=== PATIENT | male | born 1965 ===

== ENCOUNTER 2017-01-09 20:08 | Emergency (ER) | payer SELFPAY ==
[2017-01-09 20:09] VITALS: BMI 17.4
[2017-01-09 20:26] VITALS: BP 105/69; PULSE 78; RESP 18; TEMP 98; O2SAT 99
--- NOTE | 2017-01-09 22:15 | C.PDOC ---
History Of Present Illness 51 y/o male c/o feeling an itchy ball in his rectum x 3 days. pt has hard stool and strains with bm. denies rectal bleeding, abdominal pain, nausea, vomiting, diarrhea. Time Seen by Provider: 01/09/17 22:10 Chief Complaint (Nursing): Male Genitourinary History Per: Patient History/Exam Limitations: no limitations Onset/Duration Of Symptoms: Days (3) Current Symptoms Are (Timing): Still Present Severity: Mild Quality Of Discomfort: Pressure, Other (itching) Associated Symptoms: Constipation. denies: Fever, Chills, Nausea, Vomiting, Diarrhea Alleviating Factors: None Recent travel outside of the [place]: No Past Medical History Reviewed: Historical Data, Nursing Documentation, Vital Signs Vital Signs: Last Vital Signs Temp 98 F 01/09/17 20:23 Pulse 78 01/09/17 20:23 Resp 18 01/09/17 20:23 BP 105/69 01/09/17 20:23 Pulse Ox 99 01/09/17 22:16 - Medical History PMH: No Chronic Diseases, Fractures (RT FOREARM) Family History: States: Unknown Family Hx - Social History Hx Tobacco Use: No Hx Alcohol Use: Yes Hx Substance Use: No - Immunization History Hx Tetanus Toxoid Vaccination: No Hx Influenza Vaccination: Yes (2016) Hx Pneumococcal Vaccination: No Review Of Systems Constitutional: Negative for: Fever, Chills Cardiovascular: Negative for: Chest Pain Respiratory: Negative for: Cough Gastrointestinal: Positive for: Constipation, Rectal Pain. Negative for: Nausea , Vomiting, Abdominal Pain, Diarrhea Physical Exam - Physical Exam Appears: Non-toxic, No Acute Distress Skin: Normal Color, Warm, Dry Head: Atraumatic, Normacephalic Gastrointestinal/Abdominal: Soft, No Tenderness Rectal: Hemorrhoids (left side rectum, non tender. reducible ) Neurological/Psych: Oriented x3, Normal Speech, Normal Cognition ED Course And Treatment O2 Sat by Pulse Oximetry: 99 Medical Decision Making Medical Decision Making: pt with itchy, non tender reducible hemorrhoid left side rectum. will d/c with colace, anusol., and tylenol with clinic f/u Disposition Counseled Patient/Family Regarding: Diagnosis, Need For Followup, Rx Given - Disposition Referrals: [facility] [Outside] [facility] [Outside] Disposition: HOME/ ROUTINE Disposition Time: 22:12 Condition: STABLE Additional Instructions: Seguimiento en la clnica mdica; Llame para elmer sherly. Prue el ablandador de heces segn lo prescrito; Aumentar la fibra en la dieta al comer ms frutas y verduras; Beber jugo de ciruelas y agua. No se esfuerce al hacer elmer evacuacin intestinal. Aplicar crema en el recto 2 veces al da para el dolor y picazn. Vuelva a la valentin de emergencias por cualquier sntoma peor. Prescriptions: Docusate Sodium [Colace] 100 mg PO BID #60 capsule Hydrocortisone 2.5% (Rectal) [Anusol-HC] 30 applic MI BID #1 tube Instructions: Hemorrhoids (ED) Forms: Gen Discharge Inst Paraguayan Print Language: YI - Clinical Impression Clinical Impression: Hemorrhoid prolapse
== END 2017-01-09 22:21 | disposition home or self-care (01) ==
LOC: C.ER 20:08 → SUPCPDRO 20:08 → C.ER 22:21
DX: K64.8 Other hemorrhoids (principal)

== ENCOUNTER → 2018-10-30 20:48 | Emergency (ER) | payer SELFPAY | END | disposition left against medical advice (07) | LOC: C.ER 20:48 ==

== ENCOUNTER → 2018-11-25 17:51 | Emergency (ER) | payer SELFPAY ==
[2018-11-25 17:51] VITALS: BMI 17.4
== END | disposition left against medical advice (07) ==
LOC: C.ER 17:51
DX: Z02.89 Encounter for other administrative examinations (principal)